=== PATIENT | female | born 1935 | race Caucasian/White ===

== ENCOUNTER 2021-10-10 17:47 | Inpatient (IN) | payer OTHER ==
[2021-10-10 17:09] VITALS: BP 128/56
--- NOTE | 2021-10-10 17:10 | NUR ---
Patient received from [facility] ED via gurney. Patient AOx3-4. On room air. No signs of acute distress. Vital signs WNL. Oriented patient to unit and room. Call light within reach. Bed alarm on for safety. Belongings accounted for. Home medications received from Crow, son. Will continue to monitor.
[2021-10-10] MEDS ORDERED: ACETAMINOPHEN 325 MG TABLET PO PRN (18:45)
[2021-10-10] MEDS ORDERED: ONDANSETRON 4 MG/2 ML VIAL IV PRN (18:45)
[2021-10-10] MEDS ORDERED: REMEDY ESSENTIAL ZINC PASTE 113 GM TP PRN (18:45)
[2021-10-10] MEDS ORDERED: HYDROCODONE/APAP 5-325MG TABLET PO PRN (18:45)
[2021-10-10] MEDS ORDERED: MAGNESIUM HYDROXIDE 30 ML LIQUID UDC PO PRN (18:45)
[2021-10-10] MEDS ORDERED: HYDR-3980 PO (19:00)
[2021-10-10] MEDS ORDERED: LOSA25TA27 PO (19:00)
[2021-10-10] MEDS ORDERED: FERR325T24 PO (19:00)
[2021-10-10] MEDS ORDERED: CELE200C PO (19:00)
[2021-10-10] MEDS ORDERED: LEVO88TA5 PO (19:00)
[2021-10-10] MEDS ORDERED: TRAM50TA PO (19:00)
[2021-10-10] MEDS ORDERED: VENL75TA4 PO (19:00)
[2021-10-10] MEDS ORDERED: VENL75TA74 PO (19:15)
[2021-10-10] MEDS ORDERED: LINA72CA PO (19:16)
[2021-10-10 19:31] LABS: HEMATOCRIT 39.7 % (31.2-41.9); MEAN CORPUSCULAR HEMOGLOBIN 30.8 uug (24.7-32.8); PLATELET COUNT (AUTO) 220 K/uL (179-408)
[2021-10-10 19:40] LABS: ALANINE AMINOTRANSFERASE 22 U/L (14-59); ALKALINE PHOSPHATASE 60 U/L (50-136); ASPARTATE AMINOTRANSFERASE 20 U/L (15-37); BILIRUBIN,TOTAL 0.7 mg/dL (0.2-1.0); CARBON DIOXIDE 29 mmol/L (21-32); CHLORIDE 98 mmol/L (98-107); GLUCOSE 105 mg/dL (74-106); MAGNESIUM 2.1 mg/dL (1.8-2.4); PHOSPHOROUS 2.8 mg/dL (2.5-4.9); POTASSIUM 3.8 mmol/L (3.5-5.1); TOTAL PROTEIN, SERUM 8.4 g/dL (6.4-8.2); UREA NITROGEN, BLOOD 22 mg/dL (7-18)
[2021-10-10] MEDS ORDERED: ENOXAPARIN SODIUM 40 MG/0.4 ML DISP.SYRIN SQ SCH (20:00)
[2021-10-10 20:18] LABS: THYROID STIMULATING HORMONE 1.279 mIU/mL (0.358-3.740)
[2021-10-10 20:46] VITALS: BP 132/57
[2021-10-10 20:50] VITALS: BP 120/67
[2021-10-10 20:51] VITALS: BP 129/73
[2021-10-10] MEDS: ENOXAPARIN SODIUM 40 MG/0.4 ML DISP.SYRIN SQ SCH (22:09)
--- NOTE | 2021-10-11 00:50 | NUR ---
Resting upon initial rounds. AAOx 3-4. Needs attended. Speaks Albanian but was able to make needs known. On Lovenox for VTE. Assisted to the BR x2. No BM noted. Fall precautions maintained. Call keller within reach. VSS. Patient on orthostatic hypertension. BP lying 132/57 BP sitting 120/67 BP standing 129/73.
[2021-10-11 04:36] VITALS: BP 143/63
[2021-10-11 05:41] LABS: *BILIRUBIN,URIN NEGATIVE (NEGATIVE); *BLOOD, URINE NEGATIVE (NEGATIVE); *COLOR,URINE YELLOW (YELLOW); *KETONES,URINE TRACE (NEGATIVE); *UROBILINOGEN,URINE 0.2 E.U./dl (NORMAL); LEUKOCYTE ESTERASE ,URINE 1+ (NEGATIVE); NITRITE, URINE NEGATIVE (NEGATIVE); UGLUCOSE NEGATIVE (NEGATIVE)
[2021-10-11] MEDS: PANTOPRAZOLE SODIUM 40 MG TABLET.DR PO SCH (06:04)
[2021-10-11] MEDS: LEVOTHYROXINE SODIUM 88 MCG TABLET PO SCH (06:05)
[2021-10-11 06:39] LABS: HEMATOCRIT 37.2 % (31.2-41.9); MEAN CORPUSCULAR VOLUME 92.5 fL (75.5-95.3); PLATELET COUNT (AUTO) 193 K/uL (179-408)
[2021-10-11 06:50] LABS: CREATININE 0.8 mg/dL (0.6-1.3); PHOSPHOROUS 2.9 mg/dL (2.5-4.9); POTASSIUM 4.2 mmol/L (3.5-5.1)
[2021-10-11 06:56] LABS: *CLARITY,URINE HAZY (CLEAR)
[2021-10-11 06:57] LABS: BACTERIA,URINE MODERATE /HPF (NONE SEEN); RBC,URINE 0-3 /HPF (0-3); SQUAMOUS EPITHELIAL CELL,UR MODERATE /HPF (NONE SEEN)
[2021-10-11] MEDS: CELECOXIB 200 MG CAPSULE PO SCH ×2 (08:31→17:18)
[2021-10-11] MEDS: LOSARTAN POTASSIUM 50 MG TABLET PO SCH ×2 (08:31→20:46)
[2021-10-11] MEDS: FERROUS SULFATE 325 MG TABEC PO SCH (08:32)
[2021-10-11] MEDS: VENLAFAXINE XR 75 MG TAB.ER.24H PO SCH (08:32)
[2021-10-11] MEDS ORDERED: Medication Not On Formulary EA (Linaclotide (Linzess) 72 MCG) PO SCH (09:00)
[2021-10-11] MEDS ORDERED: [UNRECOGNIZED DRUG - OTHER] PO SCH (09:00)
[2021-10-11] MEDS ORDERED: HYDROCODONE/APAP 10-325 MG TABLET PO SCH (09:00)
[2021-10-11] MEDS ORDERED: LINACLOTIDE 72 MG PO SCH (09:00)
[2021-10-11] MEDS ORDERED: HYDROCODONE/APAP 10-325 MG TABLET PO PRN (09:00)
[2021-10-11] MEDS ORDERED: TRAMADOL HCL 50 MG TABLET PO SCH ×3 (09:00→11:00)
[2021-10-11] MEDS: CEphaleXIN 500 MG CAPSULE PO SCH ×2 (09:59→17:18)
[2021-10-11 11:54] VITALS: BP 120/71
[2021-10-11] MEDS ORDERED: HYDROCODONE/APAP 5-325MG TABLET PO PRN (12:15)
[2021-10-11] MEDS: MIRALAX 17 GM POWD.PACK PO SCH (12:39)
[2021-10-11] MEDS: DOCUSATE SODIUM 250 MG CAPSULE PO SCH (12:39)
[2021-10-11] MEDS: HYDROCODONE/APAP 10-325 MG TABLET PO SCH ×2 (12:40→17:18)
[2021-10-11] MEDS ORDERED: [UNRECOGNIZED DRUG - CODE] PO (13:23)
[2021-10-11 16:00] VITALS: BP 117/62
[2021-10-11] MEDS: TRAMADOL HCL 50 MG TABLET PO SCH ×3 (16:15→23:19)
--- NOTE | 2021-10-11 17:56 | NUR ---
Patient remain AOx3-4. Lithuanian speaking with little Yi On room air. No signs of acute distress medicated with pain Meds as per MD ordered for C/O of left hip . PT evaluation done. Vital signs WNL. Call light within reach. Bed alarm on for safety. Home medications clarified by daughter and pharmacist, medicated for C/O of constipation Meds effective able to have a large BM using the commode Will continue to monitor for comfort and safety.
[2021-10-11 20:25] VITALS: BP 104/56
[2021-10-11] MEDS: ENOXAPARIN SODIUM 40 MG/0.4 ML DISP.SYRIN SQ SCH (20:47)
--- NOTE | 2021-10-12 04:21 | NUR ---
AAOx3-4 Needs attended. OOB to bedside commode with supervision. Voiding well.complained of left hip pain, all due meds given. Will monitor patient. Repositioned for comfort. Voiding well. Needs attended. Confused and redirected.
[2021-10-12] MEDS: TRAMADOL HCL 50 MG TABLET PO SCH ×3 (04:27→12:06)
[2021-10-12 04:46] VITALS: BP 115/62
[2021-10-12] MEDS: PANTOPRAZOLE SODIUM 40 MG TABLET.DR PO SCH (06:05)
[2021-10-12] MEDS: LEVOTHYROXINE SODIUM 88 MCG TABLET PO SCH (06:05)
[2021-10-12 06:17] LABS: HEMATOCRIT 33.5 % (31.2-41.9); MEAN CORPUSCULAR HEMOGLOBIN 31.2 uug (24.7-32.8); MEAN CORPUSCULAR VOLUME 92.6 fL (75.5-95.3); PLATELET COUNT (AUTO) 177 K/uL (179-408)
[2021-10-12 06:47] LABS: CREATININE 1.2 mg/dL (0.6-1.3); MAGNESIUM 2.5 mg/dL (1.8-2.4); PHOSPHOROUS 2.8 mg/dL (2.5-4.9); POTASSIUM 3.7 mmol/L (3.5-5.1)
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
[2021-10-12] MEDS: CEphaleXIN 500 MG CAPSULE PO SCH (08:00)
[2021-10-12] MEDS: MIRALAX 17 GM POWD.PACK PO SCH (08:00)
[2021-10-12] MEDS: LOSARTAN POTASSIUM 50 MG TABLET PO SCH (08:00)
[2021-10-12] MEDS: VENLAFAXINE XR 75 MG TAB.ER.24H PO SCH (08:00)
[2021-10-12] MEDS: CELECOXIB 200 MG CAPSULE PO SCH (08:00)
[2021-10-12] MEDS: HYDROCODONE/APAP 10-325 MG TABLET PO SCH ×2 (08:00→13:29)
[2021-10-12] MEDS: DOCUSATE SODIUM 250 MG CAPSULE PO SCH (08:00)
[2021-10-12] MEDS: FERROUS SULFATE 325 MG TABEC PO SCH (08:01)
[2021-10-12] MEDS ORDERED: ENOX40DI SQ (09:58)
[2021-10-12] MEDS ORDERED: CEPH500C2 PO (09:58)
[2021-10-12] MEDS ORDERED: DOCU250C14 PO (09:58)
[2021-10-12] MEDS ORDERED: PANT40TA49 PO (09:58)
[2021-10-12] MEDS ORDERED: TRAM50TA2 PO (09:58)
[2021-10-12 11:18] VITALS: BP 121/65
--- NOTE | 2021-10-12 14:38 | NUR ---
dc orders received noted and carried out.,dc instruction and rn report given to rn at shelter,terry lubin per md orders,pt left the facility via ambulances in stable condition
== END 2021-10-12 14:51 | DRG 690 ==
LOC: MEDSURG3 17:47
PROVIDERS: ADMIT Registered Nurse; ATTEND Registered Nurse
DX: N39.0 Urinary tract infection, site not specified (principal); R53.1 Weakness; G89.4 Chronic pain syndrome; D50.9 Iron deficiency anemia, unspecified; E03.9 Hypothyroidism, unspecified; F32.A Depression, unspecified; F41.9 Anxiety disorder, unspecified; I10 Essential (primary) hypertension; B96.89 Other specified bacterial agents as the cause of diseases classified elsewhere; K58.9 Irritable bowel syndrome, unspecified; Z91.81 History of falling; Z96.642 Presence of left artificial hip joint; Z96.652 Presence of left artificial knee joint; M25.562 Pain in left knee; M25.552 Pain in left hip; R79.89 Other specified abnormal findings of blood chemistry
CPT/HCPCS: 36415; 83735; 84100; 84443; 85025; 87040; 87086; 97161; 97535-GO-CO; G0378; J1650